=== PATIENT | female | born 1930 | race Caucasian/White ===

== ENCOUNTER 2016-12-23 13:21 | Emergency (ER) | payer MEDICARE, OTHER ==
[2016-12-23 13:24] VITALS: TEMP 98.8
[2016-12-23 14:04] VITALS: BMI 28.1
[2016-12-23 15:22] LABS: AUTOMATED BASOPHIL 0.7 % (0-2); AUTOMATED EOSINOPHIL 2.3 % (0-5); AUTOMATED LYMPH 23.6 % (17-44); AUTOMATED MONOCYTE 7.9 % (3-10); AUTOMATED NEUTROPHIL 65.5 % (45-76); MPV 7.2 fL (7.4-10.4)
[2016-12-23 15:30] LABS: LEUKOCYTES/URINE 2+ (NEGATIVE); NITRITE/URINE NEG (NEGATIVE); URINE OCCULT BLOOD 1+ (NEG/TRACE); WBC/URINE 20-30 (0-5)
[2016-12-23 15:34] LABS: PARTIAL THROMB. TIME 28.2 SEC (22-35)
--- NOTE | 2016-12-23 15:35 | DIRPT ---
CLINICAL DATA: One day history of syncopal episode EXAM: CT HEAD WITHOUT CONTRAST TECHNIQUE: Contiguous axial images were obtained from the base of the skull through the vertex without intravenous contrast. COMPARISON: None. FINDINGS: There is mild diffuse atrophy. There is no intracranial mass, hemorrhage, extra-axial fluid collection, or midline shift. There is patchy small vessel disease in the centra semiovale bilaterally. Elsewhere, zamorano-white compartments appear normal. No acute infarct evident. The bony calvarium appears intact. The mastoid air cells are clear. There is ethmoid sinus disease bilaterally. There is also opacity in the visualized superior most aspect of the left maxillary antrum. There is mucosal thickening in hypoplastic frontal sinuses bilaterally as well. No intraorbital lesions are apparent in the visualized orbital regions. IMPRESSION: Mild atrophy with patchy periventricular small vessel disease. No intracranial mass, hemorrhage, or extra-axial fluid collection. Areas of paranasal sinus disease. Electronically Signed By: Keyon Ramírez III, M.D. On: 12/23/2016 15:33
--- NOTE | 2016-12-23 15:41 | EDPRACDOC ---
- General Information Chief Complaint: Blood Pressure (Problems) Stated Complaint: GENERALIZED WEAKNESS Time Seen by Provider: 12/23/16 14:38 Mode Of Arrival: Car Home Medications: Home Medications Nitrofurantoin [Macrobid] 100 mg PO BID #20 cap 12/23/16 Allergies/Adverse Reactions: Allergies Allergy/AdvReac Type Severity Reaction Status Date / Time No Known Allergies Allergy Verified 12/23/16 14:04 - History of Present Illness Onset: 1 day HPI: PT PRESENTS TODAY WITH CONCERNS FROM FAMILY. FAMILY STATES THAT PT FELL ASLEEP DURING [facility] SERVICE TODAY AND WAS VERY DIFFICULT TO WAKE. FAMILY STATES THAT PTS BP WAS MEASURED BY A NURSE AND IT WAS 80/40. PT WAS WOKEN UP, AND BP GRADUALLY BEGAN TO RISE. PT HAS NO COMPLAINTS. FAMILY HERE TO "GET HER CHECKED OUT BECAUSE IT'S BEEN AWHILE SINCE SHE'S SEEN A DOCTOR". NO PMH/ MEDS/SURGERIES. Duration: Minutes Presyncopal phase:: Reports: None Syncopal phase:: Reports: Other Prehospital care: Reports: None Associated Signs/Symptoms: Reports: None ED Past Medical History - History Reviewed Yes Nurses notes reviewed and agree except as marked EDM Review of Systems - Review of Systems ROS Negative Except as Marked: Yes All systems reviewed and were negative except as marked Constitutional: No Symptoms Reported Eyes: No Symptoms Reported Ears: No Symptoms Reported Throat: No Symptoms Reported Nose: No Symptoms Reported Respiratory: No Symptoms Reported Cardiovascular: No Symptoms Reported Gastrointestinal: No Symptoms Reported Neurological: No Symptoms Reported Musculoskeletal: No Symptoms Reported Integumentary: No Symptoms Reported - Physical Exam Constitutional: Alert (Awake), No apparent distress Oriented to: Time, Person, Place Last recorded Vital Signs: Last Vital Signs Temp 98.8 F 12/23/16 13:24 Pulse 77 12/23/16 14:53 Resp 18 12/23/16 14:53 BP 178/71 12/23/16 14:53 Pulse Ox 97 12/23/16 14:53 Oxygen Pulse Oxygen Saturation 97 O2 Device Room Air Oxygen Flow Rate Fraction of Inspired Oxygen ( FIO2) - HEENT Head: Normal Eye Exam: Normal Oropharynx: Normal Tympanic Membrane: Normal ENT EAC: Normal Nose: No Symptoms Reported Neck: Normal, Denies Pain, Midline - Respiratory/Cardiovascular Respiratory: Normal - CTA Cardiovascular: Normal - GI Palpation: Normal Tenderness: Non tender - Musculoskeletal Back: Normal Extremities: Normal - Integumentary Skin: Normal Lymphatics: Normal - Neurologic Cerebellar: Normal Mood Description: Normal Thought: Coherent Perception: Normal - Results 12/23/16 15:03 12/23/16 15:03 WBC 8.3 xk/uL (3.8-10.8) 12/23/16 15:03 RBC 4.58 xM/uL (4.20-5.40) 12/23/16 15:03 Hgb 14.3 g/dL (12.0-16.0) 12/23/16 15:03 Hct 42.7 % (36-47) 12/23/16 15:03 MCV 93 fL (81-99) 12/23/16 15:03 MCH 31.3 pg (27-32) 12/23/16 15:03 MCHC 33.5 g/dl (33-36) 12/23/16 15:03 RDW 13.8 % (11.5-14.5) 12/23/16 15:03 Plt Count 288 xk/uL (130-400) 12/23/16 15:03 MPV 7.2 fL (7.4-10.4) L 12/23/16 15:03 Neut % (Auto) 65.5 % (45-76) 12/23/16 15:03 Lymph % (Auto) 23.6 % (17-44) 12/23/16 15:03 [place] % (Auto) 7.9 % (3-10) 12/23/16 15:03 Eos % (Auto) 2.3 % (0-5) 12/23/16 15:03 Baso % (Auto) 0.7 % (0-2) 12/23/16 15:03 Absolute Neuts (auto) 5.40 xk/uL (1.7-8.2) 12/23/16 15:03 Absolute Lymphs (auto) 1.91 xk/uL (0.65-4.75) 12/23/16 15:03 Urine Color Yellow 12/23/16 15:06 Urine Clarity Clear 12/23/16 15:06 Urine pH 5.0 (5.0-8.0) 12/23/16 15:06 Ur Specific [place] 1.020 (1.003-1.035) 12/23/16 15:06 Urine Protein 1+ (NEG/TRACE) H 12/23/16 15:06 Urine Glucose (UA) Neg (NEGATIVE) 12/23/16 15:06 Urine Ketones Neg (NEGATIVE) 12/23/16 15:06 Urine Occult Blood 1+ (NEG/TRACE) H 12/23/16 15:06 Urine Nitrite Neg (NEGATIVE) 12/23/16 15:06 Urine Bilirubin Neg (NEGATIVE) 12/23/16 15:06 Urine Urobilinogen <2.0 MG/DL (0-1) 12/23/16 15:06 Ur Leukocyte Esterase 2+ (NEGATIVE) H 12/23/16 15:06 Urine RBC 5-10 (0-5) H 12/23/16 15:06 Urine WBC 20-30 (0-5) H 12/23/16 15:06 Ur Epithelial Cells 2+ 12/23/16 15:06 Urine Bacteria 2+ (NEG/FEW) H 12/23/16 15:06 Urine Mucus Mod (NEG/OCC) H 12/23/16 15:06 Lab Results 12/23/16 12/23/16 15:06 15:03 WBC 8.3 RBC 4.58 Hgb 14.3 Hct 42.7 MCV 93 MCH 31.3 MCHC 33.5 RDW 13.8 Plt Count 288 MPV 7.2 L Neut % (Auto) 65.5 Lymph % (Auto) 23.6 [place] % (Auto) 7.9 Eos % (Auto) 2.3 Baso % (Auto) 0.7 Absolute Neuts (auto) 5.40 Absolute Lymphs (auto) 1.91 Urine Color Yellow Urine Clarity Clear Urine pH 5.0 Ur Specific [place] 1.020 Urine Protein 1+ H Urine Glucose (UA) Neg Urine Ketones Neg Urine Occult Blood 1+ H Urine Nitrite Neg Urine Bilirubin Neg Urine Urobilinogen <2.0 Ur Leukocyte Esterase 2+ H Urine RBC 5-10 H Urine WBC 20-30 H Ur Epithelial Cells 2+ Urine Bacteria 2+ H Urine Mucus Mod H - EKG EKG #1 EKG Time: 15:26 -: Yes EKG interpreted by me Rate: bpm: 72 [place]: Normal Rhythm: NSR Block: None Hypertrophy: None ST: Normal Decision Time to Discharge: 16:00 - Departure Disposition: Home Condition: Good Final Diagnosis: Urinary tract infection Instructions: Urinary Tract Infection in Women (ED), Dysuria Education/Counseling Given To: Patient, Family Member Education/Counseling Given Regarding: Diagnosis, Treatment, Follow Up Referrals: None,No Provider [Primary Care Provider] - One Week GERRY MENDOZA [NonStaff] - One Week Noé Fontanez II, MD [Staff Physician] - One Week Prescriptions: New Nitrofurantoin [Macrobid] 100 mg PO BID #20 cap Additional Instructions: DRINK PLENTY OF WATER TO KEEP HYDRATED AND KEEP BLADDER CLEAN. FOLLOW UP WITH PCP IN 2-3 DAYS IF NEEDED.
[2016-12-23 15:43] LABS: BLOOD UREA NITROGEN 20 MG/DL (7-17); CALCIUM 9.7 MG/DL (8.4-10.2); CALCULATED OSMOLALITY 271 MOs/Kg (270-290); CHLORIDE 102 mEq/L (98-107); GLUCOSE 90 mg/dL (70-99); SODIUM LEVEL 139 mEq/L (137-146); TOTAL PROTEIN 8.3 G/DL (6.3-8.2)
--- NOTE | 2016-12-23 15:52 | DIRPT ---
CLINICAL DATA: Falling asleep during daylight hours. EXAM: PORTABLE CHEST 1 VIEW COMPARISON: None. FINDINGS: Normal cardiac silhouette. No effusion, infiltrate, or pneumothorax. Mild bronchitic change centrally. Degenerative osteophytosis of the thoracic spine. IMPRESSION: No acute cardiopulmonary process. Electronically Signed By: Jose Manuel Gutierrez M.D. On: 12/23/2016 15:49
[2016-12-23 16:26] VITALS: BP 156/69; PULSE 76
== END 2016-12-23 16:25 | disposition home or self-care (01) ==
LOC: ED 13:21 → EDMC 16:25
DX: N39.0 Urinary tract infection, site not specified (principal); R55 Syncope and collapse
CPT/HCPCS: 36415; 70450; 71010; 80053; 81001; 84484; 85025; 85610; 85730; 87086; 93005; 99284